=== PATIENT | female | born 1950 | race Caucasian/White ===

== ENCOUNTER 2016-12-10 16:16 | Emergency (ER) | payer MEDICARE ==
[~2016-12-10] VITALS: Ht 160 cm; Wt 69.1 kg
[2016-12-10] MEDS ORDERED: LOSA1TAB12 PO (16:33)
[2016-12-10] MEDS ORDERED: OxyCODONE HCL/ACETAMINOPHEN 5-325 MG TABLET PO ONE (16:45)
[2016-12-10 18:42] VITALS: BP 126/78
== END 2016-12-10 19:30 | disposition home or self-care (01) ==
LOC: EMS 16:18
DX: S52.501A Unspecified fracture of the lower end of right radius, initial encounter for closed fracture (principal); S52.601A Unspecified fracture of lower end of right ulna, initial encounter for closed fracture; E11.9 Type 2 diabetes mellitus without complications; I10 Essential (primary) hypertension; W18.39XA Other fall on same level, initial encounter; Y93.89 Activity, other specified; Y92.89 Other specified places as the place of occurrence of the external cause; Y99.9 Unspecified external cause status
CPT/HCPCS: 99284